=== PATIENT | female | born 1940 | race Caucasian/White ===

== ENCOUNTER 2024-01-07 09:34 | Outpatient (CLI) | payer MEDICARE, SELFPAY ==
--- NOTE | ~2024-01-07 | MR_ITS ---
MRI of the cervical spine Clinical History: Radiculopathy Technique: Axial T2-weighted and gradient images, and sagittal T1-weighted, T2-weighted, and STIR andria ges were acquired. Findings: There is no fracture or subluxation of the cervical spine. Vertebral bodies maintain normal height and alignment. No suspicious bone marrow signal abnormality seen. At C2-C3, there is no significant disc bulge or herniation. There is no spinal canal stenosis or cord compression. There is bilateral neural foraminal narrowing with bilateral facet arthropathy. At C3-C4, there is minimal disc osteophyte complex. No spinal canal stenosis or cord compression. The re is right neural foraminal narrowing with right facet arthropathy. Left neural foramen preserved. At C4-C5, there is minimal disc osteophyte complex. There is mild flattening the ventral cord with mi nimal canal stenosis. There is bilateral neural foraminal narrowing with bilateral facet arthropathy. At C5-C6, there is no significant disc bulge or herniation. No central canal stenosis or cord zac redd. There is probable bilateral neural foraminal narrowing with bilateral facet arthropathy. At C6-C7, there is minimal disc osteophyte complex, without canal stenosis or cord compression. There is bilateral neural foraminal narrowing with bilateral facet arthropathy. No abnormal signal seen in the spinal cord. Paravertebral soft tissues are unremarkable. Impression: Moderate degenerative spondylosis, as above. Reviewed, dictated and finalized at [facility]. Impression: Moderate degenerative spondylosis, as above.
== END 2024-01-07 09:35 ==
LOC: MICIMG 09:37
PROVIDERS: Visit Provider Nurse Practitioner Family
DX: M47.892 Other spondylosis, cervical region (principal)
CPT/HCPCS: 72141